=== PATIENT | female | born 1990 | race Caucasian/White ===

== ENCOUNTER 2021-09-22 13:17 | Observation (INO) ==
[~2021-09-22 13:17] MED LIST: Famotidine 20 MG/2 ML VIAL IVP ONE; Ringers Solution, Lactated 1,000 ML IVC ONE
[2021-09-22 16:38] LABS: Basophils # 0.1 K/mcL (0.0-0.2); Basophils % 0.8 %; Eosinophils # 0.1 K/mcL (0.0-0.6); Eosinophils % 1.4 %; Hematocrit 41.1 % (35.3-44.9); Hemoglobin 13.9 g/dL (11.5-15.4); Immature Granulocytes % 0.3 % (0-4); Lymphocytes # 2.1 K/mcL (0.6-4.6); Lymphocytes % 22.6 %; Mean Corpuscular HGB Conc 33.8 g/dL (31.6-35.5); Mean Corpuscular Hemoglobin 31.4 pg (28.0-33.3); Mean Corpuscular Volume 92.8 fL (83.0-100.0); Mean Platelet Volume 9.2 fL (9.4-12.4); Monocytes # 0.8 K/mcL (0.0-1.3); Neutrophils # 6.1 K/mcL (1.6-8.9); Platelet Count 271 K/mcL (140-400); Red Blood Count 4.43 M/mcL (3.82-4.97); Red Cell Distribution Width 12.4 % (11.5-14.5); Segmented Neutrophils % 65.9 %; White Blood Count 9.2 K/mcL (4.3-11.1)
[2021-09-22] MEDS ORDERED: *HR* Succinylcholine 200 MG/10 ML VIAL IVP ONE (17:59)
[2021-09-22] MEDS ORDERED: Ondansetron 4 MG/2 ML VIAL ONE (17:59)
[2021-09-22] MEDS ORDERED: *HR* Propofol 200 MG/20 ML VIAL IVP ONE ×2 (17:59→22:21)
[2021-09-22] MEDS ORDERED: Lidocaine -MPF 2% 2 ML VIAL ONE ×2 (17:59→18:01)
[2021-09-22] MEDS ORDERED: Acetaminophen IV 1,000 MG/100 ML BAG IVPB ONE ×2 (18:36→23:06)
[2021-09-22] MEDS ORDERED: Albuterol 2.5 MG/3 ML NEBULIZER IH PRN (18:37)
[2021-09-22] MEDS ORDERED: Lidocaine HCL 4 ML Topical Solution (Laryng-O-Jet Kit Sterile Pak) TP ONE (19:06)
[2021-09-22] MEDS ORDERED: *HR* FentaNYL (PF) 100 MCG/2 ML VIAL ONE (19:07)
[2021-09-22] MEDS ORDERED: *HR* Midazolam HCl 2 MG/2 ML VIAL ONE (19:08)
[2021-09-22] MEDS ORDERED: Bupivacaine/EPI 1:200k 0.25% 50 ML VIAL ONE (20:19)
[2021-09-22] MEDS ORDERED: Scopolamine Patch 1.5 MG PATCH.TD72 ONE (20:34)
[2021-09-22] MEDS ORDERED: *HR* HYDROMORPHONE 2 MG/ML VIAL ONE (21:26)
[2021-09-22] MEDS ORDERED: Sugammadex Sodium 200 MG/2 ML VIAL IV ONE (22:07)
[2021-09-22] MEDS ORDERED: Ketorolac 30 MG/ML VIAL ONE (22:14)
[2021-09-22] MEDS ORDERED: *HR* FentaNYL (PF) 100 MCG/2 ML VIAL IVP PRN (23:01)
[2021-09-22] MEDS ORDERED: *HR* HYDROmorphone (PF) 1 MG/ML SYRINGE IVP ONE (23:05)
[2021-09-23] MEDS ORDERED: Naloxone 0.4 MG/ML INJ IVP PRN (00:15)
[2021-09-23] MEDS ORDERED: Ibuprofen 600 MG TABLET PO PRN (00:15)
[2021-09-23] MEDS ORDERED: Ondansetron 4 MG/2 ML VIAL IVP PRN (00:15)
[2021-09-23] MEDS ORDERED: *HR* OxyCODONE/APAP 5/325 TABLET PO PRN (00:15)
[2021-09-23] MEDS ORDERED: Ringers Solution, Lactated 1,000 ML IVC SCH (00:15)
[2021-09-23 07:45] VITALS: BP 109/72; PULSE 60; TEMP 98.3; O2SAT 97
== END 2021-09-23 09:27 | disposition home or self-care (01) ==
LOC: EMEROOARM 13:17 → 1NENUOBS 13:17
PROVIDERS: ADMIT Obstetrics & Gynecology; ATTEND Obstetrics & Gynecology